=== PATIENT | female | born 1980 | race Two or more races ===

== ENCOUNTER 2024-11-01 14:50 | Outpatient (CLI) | payer OTHER, SELFPAY ==
--- NOTE | 2024-11-01 15:00 | CRLHL7_ITS ---
For Patients: As a result of the Century Cures Act, medical imaging exams and procedure reports are released immediately into your electronic medical record. You may view this report before your referring provider. If you have questions, please contact your health care provider. INDICATION: bilateral screening mammogram, asymptomatic 44 year old female COMPARISON: : BASELINE TECHNIQUE: Digital mammogram in CC and MLO projections including computer-aided detection (CAD) and tomosynthesis. BREAST COMPOSITION: The breasts are heterogeneously dense, which may obscure small masses. FINDINGS: No suspicious findings. ASSESSMENT: BI-RADS 2 Benign RECOMMENDATION: Annual screening mammogram. A lay language report of this examination will be provided to the patient. Dictated by: Jonathan Reyes MD @ 11/05/2024 10:03:21 (Electronically Signed)
== END 2024-11-01 14:51 | disposition home or self-care (01) ==
LOC: MAMMO 11-04 17:27
PROVIDERS: PCP Physician Assistant; Visit Provider Physician Assistant
DX: Z12.31 Encounter for screening mammogram for malignant neoplasm of breast (principal); R92.333 Mammographic heterogeneous density, bilateral breasts
CPT/HCPCS: 77063; 77067; T1013

== ENCOUNTER 2024-11-01 15:25 | Outpatient (CLI) | payer SELFPAY ==
[2024-11-05 00:47] LABS: HPV Source Cervical
== END 2024-11-01 15:26 | disposition home or self-care (01) ==
PROVIDERS: PCP Physician Assistant; Visit Provider Advanced Practice Midwife
DX: Z12.4 Encounter for screening for malignant neoplasm of cervix (principal); Z11.51 Encounter for screening for human papillomavirus (HPV)
CPT/HCPCS: 87624; 87625; 88141; 88142